=== PATIENT | male | born 1990 | race Two or more races ===

== ENCOUNTER 2020-12-24 16:55 | Emergency (ER) | payer MEDICAID, OTHER ==
[~2020-12-24] VITALS: Ht 182.9 cm; Wt 104.3 kg
[2020-12-24 16:59] VITALS: BP 122/78
[2020-12-24] MEDS ORDERED: SILV20CR13 TP (17:08)
--- NOTE | 2020-12-24 17:51 | NUR ---
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
== END 2020-12-24 17:55 | disposition home or self-care (01) ==
LOC: ER 17:02
DX: T28.7XXA Corrosion of other parts of alimentary tract, initial encounter (principal); T24.402A Corrosion of unspecified degree of unspecified site of left lower limb, except ankle and foot, initial encounter; T24.401A Corrosion of unspecified degree of unspecified site of right lower limb, except ankle and foot, initial encounter; F17.200 Nicotine dependence, unspecified, uncomplicated; Z98.890 Other specified postprocedural states; W22.11XA Striking against or struck by driver side automobile airbag, initial encounter; Y93.89 Activity, other specified; Y92.89 Other specified places as the place of occurrence of the external cause; Y99.8 Other external cause status

== ENCOUNTER 2023-02-07 18:40 | Emergency (ER) | payer MEDICAID, OTHER ==
[~2023-02-07] VITALS: Ht 172.7 cm; Wt 95.3 kg
[~2023-02-07 18:40] MED LIST: SILV20CR13 TP
[2023-02-07 18:57] VITALS: BP 143/83; TEMP 97.9; O2SAT 100
[2023-02-07] MEDS ORDERED: HYDR-4209 PO (19:22)
[2023-02-07] MEDS ORDERED: SULF1TAB48 PO (19:22)
[2023-02-07] MEDS ORDERED: CEPH500C2 PO (19:22)
== END 2023-02-07 19:30 | disposition home or self-care (01) ==
LOC: ER 18:45
DX: L02.31 Cutaneous abscess of buttock (principal); F17.200 Nicotine dependence, unspecified, uncomplicated; Z98.890 Other specified postprocedural states; Z79.899 Other long term (current) drug therapy